=== PATIENT | male | born 1980 | race African-American/Black ===

== ENCOUNTER 2020-07-07 22:51 | Emergency (ER) | payer OTHER ==
[~2020-07-07] VITALS: Ht 180.3 cm; Wt 77.1 kg
== END 2020-07-07 23:37 | disposition left against medical advice (07) ==
LOC: ED 22:51
DX: R07.9 Chest pain, unspecified (principal); F17.200 Nicotine dependence, unspecified, uncomplicated; Z88.8 Allergy status to other drugs, medicaments and biological substances; Z53.29 Procedure and treatment not carried out because of patient's decision for other reasons